=== PATIENT | male | born 1980 | race Caucasian/White ===

== ENCOUNTER 2019-06-10 21:53 | Emergency (ER) | payer SELFPAY ==
[2019-06-10] MEDS: ACETAMINOPHEN 325 MG TAB PO (22:58)
== END 2019-06-11 00:18 | disposition home or self-care (01) ==
LOC: FTE 06-11 00:18
DX: S00.03XA Contusion of scalp, initial encounter (principal); X58.XXXA Exposure to other specified factors, initial encounter; Y92.9 Unspecified place or not applicable
CPT/HCPCS: 36415; 70450; 99284-25